=== PATIENT | male | born 2005 | race Caucasian/White ===

== ENCOUNTER 2024-07-18 07:58 | Outpatient (CLI) | payer BC, SELFPAY ==
[2024-07-18 15:19] LABS: Basophils Absolute Auto 0.1 K/mm3 (0.0-0.1); Basophils Percent Auto 0.9 % (0.2-1.2); Eosinophils Absolute Auto 0.2 K/mm3 (0-0.3); Eosinophils Percent Auto 2.6 % (0-4.4); Hematocrit 41.8 % (42.0-52.0); Immature Granulocyte Absolute 0.06 K/mm3 (0.00-0.031); Immature Granulocyte Percent A 0.9 % (0-0.5); Lymphocytes Absolute Auto 2.55 K/mm3 (0.9-3.2); Lymphocytes Percent Auto 37.2 % (18.3-44.2); Mean Corpuscular HGB Conc 33.5 g/dl (32-36); Mean Corpuscular Hemoglobin 30.4 pg (26-34); Mean Corpuscular Volume 90.7 fl (80-100); Mean Platelet Volume 10.4 fl (7.4-10.4); Monocytes Absolute Auto 0.6 K/mm3 (0.1-0.6); Monocytes Percent Auto 9.3 % (2.6-8.5); Neutrophils Absolute Auto 3.4 K/mm3 (1.3-6.7); Neutrophils Percent Auto 49.1 % (45.5-73.1); Platelet Count Result 288 k/mm3 (150-375); Red Blood Count 4.61 M/mm3 (4.6-6.20); Red Cell Distribution Width 12.7 % (11.5-14.5); White Blood Count 6.9 K/mm3 (4.5-10.0)
[2024-07-18 15:26] LABS: Add Urine Microscopic? NO; Appearance Urine Clear (Clear); Bilirubin Urine Negative (Negative); Blood Urine Negative (Negative); Color Urine Yellow (Yellow); Glucose Urine UA 3+ mg/dL (Negative); Ketones Urine 3+ mg/dL (Negative); Leukocyte Esterase Ur Negative LEU/UL (Negative); Nitrate Urine Negative (Negative); Protein Urine Negative (Negative); Specific Grav Ur > 1.045 (1.001-1.035); Urobilinogen Urine 0.2 mg/dL (<2.0); pH Urine 5.5 (5.0-9.0)
[2024-07-18 15:41] LABS: Alanine Aminotransferase 19 U/L (6-50); Albumin Level 4.5 g/dL (3.5-5.1); Alkaline Phosphatase 56 U/L (38-126); Anion Gap 17 mmol/L (4-12); Aspartate Amino Transferase 61 U/L (17-59); Bilirubin,Total 0.9 mg/dL (0.2-1.3); Blood Urea Nitrogen 18 mg/dL (9-20); Calcium 9.2 mg/dL (8.4-10.2); Carbon Dioxide 24 mmol/L (22-30); Chloride 93 mmol/L (98-107); Estimated Glomerular Filt Rate > 60; Glucose 294 mg/dL (65-110); Potassium 3.7 mmol/L (3.4-5.0); Sodium 134 mmol/L (137-145)
[2024-07-18 16:34] LABS: Hemoglobin A1C > 14.0 % (<5.7)
[2024-07-18 17:12] LABS: Vitamin D 25 Hydroxy 24.1 ng/mL
[2024-07-18 18:12] LABS: Creatinine Urine 58.4 mg/dL
[2024-07-18 18:17] LABS: MALB Creatinine Ratio 49.7 mg/g (0-30)
== END 2024-07-18 07:59 | disposition home or self-care (01) ==
LOC: ANHGOSHLAB 08:00
PROVIDERS: PCP Nurse Practitioner Family; Visit Provider Nurse Practitioner Family
DX: R63.4 Abnormal weight loss (principal); I10 Essential (primary) hypertension; M62.81 Muscle weakness (generalized); Z13.1 Encounter for screening for diabetes mellitus; E55.9 Vitamin D deficiency, unspecified; E11.9 Type 2 diabetes mellitus without complications
CPT/HCPCS: 36415; 80053; 81003; 82043; 82306; 82607; 83036; 84443; 85025

== ENCOUNTER 2024-08-03 08:12 | Outpatient (CLI) | payer BC, SELFPAY ==
[2024-08-04 21:23] LABS: Insulin Level Total 2.8 uIU/mL
[2024-08-05 02:18] LABS: C-Peptide 0.78 ng/mL (0.80-3.85)
[2024-08-14 07:26] LABS: Reference Lab Test Name GAD65 Ins Autoab
[2024-08-14 21:24] LABS: Free Insulin 1.7 uIU/mL (1.5-14.9)
== END 2024-08-03 08:13 | disposition home or self-care (01) ==
LOC: ANHGOSHLAB 08:13
PROVIDERS: PCP Nurse Practitioner Family; Visit Provider Family Medicine
DX: E11.9 Type 2 diabetes mellitus without complications (principal)
CPT/HCPCS: 36415; 83525; 83527; 84681

== ENCOUNTER 2024-10-18 08:15 | Outpatient (RCR) | payer BC, SELFPAY ==
[2024-10-18 08:15] VITALS: BMI 24.1
[2024-10-18 08:17] VITALS: BMI 24.1
== END 2024-11-13 09:32 | disposition home or self-care (01) ==
LOC: ANHDMC 08:15
PROVIDERS: PCP Nurse Practitioner Family; Visit Provider Family Medicine
DX: E11.9 Type 2 diabetes mellitus without complications (principal); Z71.89 Other specified counseling; Z71.3 Dietary counseling and surveillance
CPT/HCPCS: 97802; G0108

== ENCOUNTER 2024-11-15 09:43 | Outpatient (CLI) | payer BC, SELFPAY ==
[2024-11-15 18:47] LABS: Basophils Absolute Auto 0.1 K/mm3 (0.0-0.1); Basophils Percent Auto 0.8 % (0.2-1.2); Eosinophils Absolute Auto 0.1 K/mm3 (0-0.3); Eosinophils Percent Auto 2.3 % (0-4.4); Hematocrit 46.1 % (42.0-52.0); Hemoglobin 14.9 g/dL (14.0-18.0); Immature Granulocyte Absolute 0.03 K/mm3 (0.00-0.031); Immature Granulocyte Percent A 0.5 % (0-0.5); Lymphocytes Absolute Auto 2.12 K/mm3 (0.9-3.2); Lymphocytes Percent Auto 34.5 % (18.3-44.2); Mean Corpuscular HGB Conc 32.3 g/dl (32-36); Mean Corpuscular Hemoglobin 29.4 pg (26-34); Mean Corpuscular Volume 91.1 fl (80-100); Monocytes Absolute Auto 0.5 K/mm3 (0.1-0.6); Monocytes Percent Auto 8.1 % (2.6-8.5); Neutrophils Absolute Auto 3.3 K/mm3 (1.3-6.7); Neutrophils Percent Auto 53.8 % (45.5-73.1); Platelet Count Result 327 k/mm3 (150-375); Red Blood Count 5.06 M/mm3 (4.6-6.20); Red Cell Distribution Width 12.1 % (11.5-14.5); White Blood Count 6.2 K/mm3 (4.5-10.0)
[2024-11-15 19:13] LABS: Alanine Aminotransferase 10 U/L (6-50); Albumin Level 4.9 g/dL (3.5-5.1); Alkaline Phosphatase 36 U/L (38-126); Anion Gap 6 mmol/L (4-12); Aspartate Amino Transferase 40 U/L (17-59); Blood Urea Nitrogen 23 mg/dL (9-20); Carbon Dioxide 31 mmol/L (22-30); Chloride 103 mmol/L (98-107); Cholesterol 183 mg/dL (0-200); Estimated Glomerular Filt Rate > 60; Glucose 64 mg/dL (65-110); HDL Direct 46 mg/dL; Potassium 4.1 mmol/L (3.4-5.0); Sodium 140 mmol/L (137-145); Triglycerides 92 mg/dL (<150)
[2024-11-15 19:26] LABS: LDL Cholesterol Direct 109 mg/dL
[2024-11-15 20:13] LABS: Hemoglobin A1C 5.5 % (<5.7)
== END 2024-11-15 09:44 | disposition home or self-care (01) ==
LOC: ANHGOSHLAB 09:44
PROVIDERS: PCP Family Medicine; Visit Provider Family Medicine
DX: Z00.00 Encounter for general adult medical examination without abnormal findings (principal); E78.5 Hyperlipidemia, unspecified; R63.4 Abnormal weight loss; Z13.29 Encounter for screening for other suspected endocrine disorder; E11.9 Type 2 diabetes mellitus without complications; E53.8 Deficiency of other specified B group vitamins; I10 Essential (primary) hypertension
CPT/HCPCS: 36415; 80053; 80061; 82607; 83036; 84443; 85025

== ENCOUNTER 2024-12-21 08:01 | Outpatient (RCR) | payer BC, SELFPAY ==
[2024-12-21 08:20] VITALS: BMI 23.8
== END 2025-03-21 08:36 | disposition home or self-care (01) ==
LOC: ANHDMC 08:01
PROVIDERS: PCP Family Medicine; Visit Provider Family Medicine
DX: E11.9 Type 2 diabetes mellitus without complications (principal); Z71.3 Dietary counseling and surveillance
CPT/HCPCS: 97803

== ENCOUNTER 2025-05-16 09:12 | Outpatient (CLI) | payer BC, SELFPAY ==
--- OUTSIDE RECORDS SUMMARY | 2025-05-16 09:51 | XMS_ITS | Referral Summary ---
Author Organization [address] Address [address] [place] [phone] Care Team Providers Care Tool Specialist Name Role Phone Unknown, Notinfile Primary Care Provider Unavail able Allergies No known active allergies Medications mupirocin (BACTROBAN) 2 % ointmentIndicat ions:Paronychia of finger of left hand Apply topically 3 (three) times a day 22 g Active Active Problems No known active problems Social History Tobacco Use Types Packs/Day Years Used Date Smoking Tobacco: Never Assessed Personal Safety Answer Date Recorded Getting School Help Needed Not on file 07/11 Sex and Gender Information Value Date Recorded Sex Assigned at Not on file Legal Sex Male 10:56 AM CDT Gender Identity Not on file Sexual Orientation Not on file Last Filed Vital Signs Vital Sign Reading Time Taken Comments Blood Pressure 106/64 07/11/2024 5:11 PM CDT Pulse 94 07/11/2024 5:11 PM CDT Temperature 36.4 C (97.5 F) 07/11/2024 5:11 PM CDT Respiratory Rate 18 07/11/2024 5:11 PM CDT Oxygen Saturation 97% 07/11/2024 5:11 PM CDT Inhaled Oxygen Concentration - - Weight 75.3 kg (166 lb) 07/11/2024 5:11 PM CDT Height 185.4 cm (6' 1) 07/11/2024 5:11 PM CDT Body Mass Index 21.9 07/11/2024 5:11 PM CDT Plan of Treatment Not on file Insurance [employer] OOS Member Subscriber Plan / Payer (Ef fective 2023-Present) Name:Eligio Powers Relation to Subscriber:Child Name:Cosmo Powers Date of :1961 Address: [address] [place] [phone] Payer ID:[id number] (NAIC) Type: [employer] Address: [facility] [id number] [place] [id number] Care Teams Tool Specialist Relationship Specialty Start Date End Date Unknown, Notinfile PCP - General 07/11/24
--- OUTSIDE RECORDS SUMMARY | 2025-05-16 09:51 | XMS_ITS | Clinical Summary ---
Author Organization [place] [address] [place] Address [address] [place] [phone] Care Team Providers Care Midwife Name Role Phone Unknown, Notinfile Primary Care Provider Unavail able Allergies No known active allergies Medications mupirocin (BACTROBAN) 2 % ointmentIndicat ions:Paronychia of finger of left hand Apply topically 3 (three) times a day 22 g 4 Active Active Problems No known active problems [...] 07/11/2024 5:11 PM CDT Plan of Treatment Health Maintenance Due Date Last Done Comments Depression Screening 2004 Hepatitis C Screening 2004 HPV Vaccines (1 - Male 3-dose series) 2019 Meningococcal B Vaccine (1 of 2 - Standard) 2020 Regular Well Visit/Exam 18-64 2022 Influenza Vaccine (Season Ended) 2025 DTaP/Tdap/Td Vaccine (6 - Td or Tdap) 08/10/2025 08/10/2015, 04/05/2010, 01/15/2010, Additional history exists Pneumococcal vaccine <65 Aged Out 07/19/2009 No longer eligible based on patient's age to complete this topic Hepatitis B Screening Completed 01/15/2010 , 07/19/2009, 2004 Varicella Vaccines Completed 04/19/2010, 07/19/2009 Meningococcal Vaccine Aged Out 08/10/2015 No nadia johnathan eligible based on patient's age to complete this topic Insurance [employer] OOS Member Subscriber Plan / Payer (Ef fective 2023-Present) Name:Eligio Powers Relation to Subscriber:Child Name:Cosmo Powers Date of :1961 Address: [address] [place] [phone] Payer ID:[id number] (NAIC) Type: SAMUEL Address: [facility] [id number] [place] [id number] Care Teams Midwife Relationship Specialty Start Date End Date Unknown, Notinfile PCP - General 07/11/24
[2025-05-16 19:25] LABS: Alanine Aminotransferase 14 U/L (6-50); Albumin Level 4.9 g/dL (3.5-5.1); Alkaline Phosphatase 34 U/L (38-126); Anion Gap 9 mmol/L (4-12); Aspartate Amino Transferase 42 U/L (17-59); Bilirubin,Total 2.7 mg/dL (0.2-1.3); Blood Urea Nitrogen 15 mg/dL (9-20); Calcium 9.8 mg/dL (8.4-10.2); Carbon Dioxide 27 mmol/L (22-30); Chloride 102 mmol/L (98-107); Estimated Glomerular Filt Rate > 60; Glucose 185 mg/dL (65-110); Potassium 4.7 mmol/L (3.4-5.0); Sodium 138 mmol/L (137-145); Total Protein 7.7 g/dL (6.3-8.2)
[2025-05-16 19:26] LABS: Vitamin D 25 Hydroxy 41.9 ng/mL
[2025-05-16 19:32] LABS: Hemoglobin A1C 8.4 % (<5.7)
[2025-05-16 19:48] LABS: Microalbumin Urine Random 53.2 mg/L (0-16.7)
[2025-05-16 20:17] LABS: Creatinine Urine 520.4 mg/dL; MALB Creatinine Ratio 10.2 mg/g (0-30)
== END 2025-05-16 09:13 | disposition home or self-care (01) ==
LOC: ANHGOSHLAB 09:13
PROVIDERS: PCP Family Medicine; Visit Provider Family Medicine
DX: E55.9 Vitamin D deficiency, unspecified (principal); E11.9 Type 2 diabetes mellitus without complications; Z79.899 Other long term (current) drug therapy
CPT/HCPCS: 36415; 80053; 82043; 82306; 83036

== ENCOUNTER 2025-11-16 11:06 | Outpatient (CLI) | payer OTHER, SELFPAY ==
--- OUTSIDE RECORDS SUMMARY | 2025-11-16 11:38 | XMS_ITS | Clinical Summary ---
Author Organization [place] [address] [place] Address [address] [place] [phone] Care Team Providers Care Sweater Operator Name Role Phone Unknown, Notinfile Primary Care [...] Regular Well Visit/Exam 18-64 2022 Influenza Vaccine (#1) 2025 DTaP/Tdap/Td Vaccine (6 - Td or Tdap) 08/10/2025 08/10/2015, 04/05/2010, 01/15/2010, Additional history exists Pneumococcal vaccine <65 Aged Out 07/19/2009 No longer eligible based on patient's age to complete this topic Hepatitis B Screening Completed 01/15/2010 , 07/19/2009, 2004 Varicella Vaccines Completed 04/19/2010, 07/19/2009 Meningococcal Vaccine Aged Out 08/10/2015 No nadia johnathan eligible based on patient's age to complete this topic Insurance [employer] OOS Member Subscriber Plan / Payer (Ef fective 2023-Present) Name:Eligio Powers Relation to Subscriber:Child Name:Cosmo Powers Date of :1961 Address: [address] [place] [phone] Payer ID:[id number] (NAIC) Type: SAMUEL Address: [facility] [id number] [place] [id number] Care Teams Sweater Operator Relationship Specialty Start Date End Date Unknown, Notinfile PCP - General 07/11/24
[2025-11-16 12:55] LABS: Hematocrit 42.0 % (42.0-52.0); Hemoglobin 14.0 g/dL (14.0-18.0); Immature Granulocyte Percent A 0.7 % (0-0.5); Lymphocytes Absolute Auto 1.79 K/mm3 (0.9-3.2); Mean Corpuscular HGB Conc 33.3 g/dl (32-36); Mean Corpuscular Hemoglobin 29.8 pg (26-34); Mean Corpuscular Volume 89.4 fl (80-100); Nucleated Red Blood Cells Absolute Auto 0.000 K/mm3 (0.0-0.012); Nucleated Red Blood Cells Perc 0.0 % (0.0-0.2); Platelet Count Result 365 k/mm3 (150-375); Red Blood Count 4.70 M/mm3 (4.6-6.20); White Blood Count 5.5 K/mm3 (4.5-10.0)
[2025-11-16 13:13] LABS: Alanine Aminotransferase 13 U/L (6-50); Albumin Level 5.0 g/dL (3.5-5.1); Alkaline Phosphatase 34 U/L (38-126); Anion Gap 11 mmol/L (4-12); Aspartate Amino Transferase 33 U/L (17-59); Bilirubin,Total 1.2 mg/dL (0.2-1.3); Blood Urea Nitrogen 20 mg/dL (9-20); Calcium 10.2 mg/dL (8.4-10.2); Carbon Dioxide 26 mmol/L (22-30); Chloride 103 mmol/L (98-107); Estimated Glomerular Filt Rate > 60; Glucose 194 mg/dL (65-110); Magnesium 1.9 mg/dL (1.6-2.3); Potassium 4.8 mmol/L (3.4-5.0); Sodium 140 mmol/L (137-145); Total Protein 8.3 g/dL (6.3-8.2)
[2025-11-16 13:36] LABS: Hemoglobin A1C 6.2 % (<5.7); Thyroid Stimulating Hormone Reflex 1.670 uIU/mL (0.465-4.68)
[2025-11-16 14:11] LABS: Vitamin B12 471.0 pg/mL (239-931)
== END 2025-11-16 11:07 | disposition home or self-care (01) ==
LOC: ANHGOSHLAB 11:07
PROVIDERS: PCP Family Medicine; Visit Provider Nurse Practitioner Family
DX: E11.9 Type 2 diabetes mellitus without complications (principal); E55.9 Vitamin D deficiency, unspecified
CPT/HCPCS: 36415; 80053; 82306; 82607; 83036; 83735; 84443; 85025